=== PATIENT | female | born 1990 | race Two or more races ===

== ENCOUNTER 2018-10-15 17:04 | Inpatient (IN) | payer OTHER ==
[~2018-10-15] VITALS: Ht 160 cm; Wt 64.0 kg
[2018-10-15] MEDS ORDERED: PRENATAL TABLE1 EAC1 PO (19:12)
== END 2018-10-16 19:04 | disposition home or self-care (01) | DRG 833 ==
LOC: LDR 17:04
PROVIDERS: ADMIT Obstetrics & Gynecology
PROC: BY4FZZZ Ultrasonography of Third Trimester, Single Fetus (ICD-10-PCS; principal; 2018-10-15)
PROC: 4A1HXCZ Monitoring of Products of Conception, Cardiac Rate, External Approach (ICD-10-PCS; 2018-10-15)
DX: O41.03X0 Oligohydramnios, third trimester, not applicable or unspecified (principal); Z34.03 Encounter for supervision of normal first pregnancy, third trimester

== ENCOUNTER 2018-10-23 18:45 | Inpatient (IN) | payer OTHER ==
[~2018-10-23] VITALS: Ht 160 cm; Wt 64.9 kg
[~2018-10-23 18:45] MED LIST: PRENATAL TABLE1 EAC1 PO
== END 2018-10-26 18:42 | disposition home or self-care (01) | DRG 831 ==
LOC: LDR 18:45
PROVIDERS: ADMIT Obstetrics & Gynecology
PROC: 4A1HXCZ Monitoring of Products of Conception, Cardiac Rate, External Approach (ICD-10-PCS; principal; 2018-10-23)
PROC: BY4FZZZ Ultrasonography of Third Trimester, Single Fetus (ICD-10-PCS; 2018-10-26)
DX: O41.03X0 Oligohydramnios, third trimester, not applicable or unspecified (principal); O60.03 Preterm labor without delivery, third trimester; O76 Abnormality in fetal heart rate and rhythm complicating labor and delivery

== ENCOUNTER 2018-11-06 18:12 | Inpatient (IN) | payer OTHER ==
[~2018-11-06] VITALS: Ht 160 cm; Wt 65.8 kg
== END 2018-11-09 13:35 | DRG 807 ==
LOC: LDR 18:12 → OB/GYN 11-07 16:48
PROVIDERS: ADMIT Obstetrics & Gynecology
PROC: 4A1HXCZ Monitoring of Products of Conception, Cardiac Rate, External Approach (ICD-10-PCS; 2018-11-06)
PROC: 10E0XZZ Delivery of Products of Conception, External Approach (ICD-10-PCS; principal; 2018-11-07)
PROC: 3E033VJ Introduction of Other Hormone into Peripheral Vein, Percutaneous Approach (ICD-10-PCS; 2018-11-07)
DX: O41.03X0 Oligohydramnios, third trimester, not applicable or unspecified (principal); Z37.0 Single live birth; Z3A.37 37 weeks gestation of pregnancy